=== PATIENT | male | born 1990 | race Caucasian/White ===

== ENCOUNTER 2022-11-08 11:46 | Emergency (ER) | payer BC ==
--- NOTE | 2022-11-08 11:52 | ERPHSYRPT ---
- History of Present Illness Time Seen by Provider: 11/08/22 11:52 Source: patient Exam Limitations: no limitations Physician History: This is a 32-year-old white male who had a skin abscess lanced and started on amoxicillin yesterday. He has had 3 doses to help treat this area of infection. He did not take this morning's dose. He noticed some redness followed by rash on his face. He is never taken amoxicillin before. The area became more intensely red and hot and therefore he came to the emergency room for evaluation. He has had no respiratory compromise or issues. He has no chest pain. He has no nausea vomiting or diarrhea. Timing/Duration: today Severity: moderate Associated Symptoms: rash (Facial), No nausea, No vomiting, No shortness of breath, No chest pain, No fever Allergies/Adverse Reactions: Penicillins Allergy (Verified 11/08/22 11:49) Home Medications: Sertraline HCl 1 tab PO DAILY 11/08/22 [History] Travel Risk - International Travel Have you traveled outside of the country in past 3 weeks: No - Coronavirus Screening Are you exhibiting any of the following symptoms?: No Close contact with a COVID-19 positive Pt in past 14-21 Days: No - Review of Systems Constitutional: No Symptoms Eyes: No Symptoms Ears, Nose, & Throat: Other (Facial rash) Respiratory: No Symptoms Cardiac: No Symptoms Abdominal/Gastrointestinal: No Symptoms Genitourinary Symptoms: No Symptoms Musculoskeletal: No Symptoms Skin: Rash (Facial rash), Other (Facial rash) Neurological: No Symptoms Psychological: No Symptoms Endocrine: No Symptoms Hematologic/Lymphatic: No Symptoms Immunological/Allergic: No Symptoms All Other Systems: Reviewed and Negative - Past Medical History Pertinent Past Medical History: Yes - Nursing Vital Signs Nursing Vital Signs: Initial Vital Signs Temperature 97.6 F 11/08/22 11:50 Pulse Rate 91 H 11/08/22 11:50 Respiratory Rate 18 11/08/22 11:50 Blood Pressure 180/117 11/08/22 11:50 O2 Sat by Pulse Oximetry 97 11/08/22 11:50 Pain Scale Pain Intensity 5 - Physical Exam General Appearance: no apparent distress, alert, anxiety, obese Eye Exam: PERRL/EOMI, eyes nml inspection Ears, Nose, Throat Exam: normal ENT inspection, moist mucous membranes Neck Exam: normal inspection, non-tender, supple, full range of motion Respiratory Exam: normal breath sounds, lungs clear, airway intact, No chest tenderness, No respiratory distress Cardiovascular Exam: regular rate/rhythm, normal heart sounds, normal peripheral pulses Gastrointestinal/Abdomen Exam: soft, normal bowel sounds, No tenderness Rectal Exam: not done Back Exam: normal inspection, normal range of motion, No CVA tenderness, No vertebral tenderness Extremity Exam: normal inspection, normal range of motion, pelvis stable Neurologic Exam: alert, oriented x 3, cooperative, classifier II-XII nml as tested, normal mood/affect, nml cerebellar function, nml station & gait, sensation nml Skin Exam: warm, rash (Deep red facial rash in the distribution of the patient's forehead cheeks nose and chin.) Lymphatic Exam: No adenopathy SpO2 Interpretation: normal O2 Delivery: Room Air - Course Nursing assessment & vital signs reviewed: Yes Ordered Tests: Active Orders 24 hr Category Date Time Status IV Insertion STAT Care 11/08/22 12:02 Active Medication Summary Discontinued Medications Generic Name Dose Route Start Last Admin Trade Name Lisa PRN Reason Stop Dose Admin Methylprednisolone Sodium 0 mg 11/08/22 12:02 11/08/22 12:06 Succinate 125 mg/ Sterile IV 11/08/22 12:03 125 mg Water 2 ml STAT ONE Administration Diphenhydramine HCl 50 mg 11/08/22 12:02 11/08/22 12:06 Diphenhydramine Hcl 50 Mg/Ml Vial IV 11/08/22 12:03 50 mg STAT ONE Administration Diphenhydramine HCl Confirm 11/08/22 12:05 Diphenhydramine Hcl 50 Mg/Ml Vial Administered 11/08/22 12:06 Dose 50 mg .ROUTE .STK-MED ONE Famotidine 20 mg 11/08/22 12:02 11/08/22 12:06 Famotidine 20 Mg/1 Vial IV 11/08/22 12:03 20 mg STAT ONE Administration Famotidine Confirm 11/08/22 12:05 Famotidine 20 Mg/1 Vial Administered 11/08/22 12:06 Dose 20 mg IV .STK-MED ONE Methylprednisolone Sodium Succinate Confirm 11/08/22 12:05 Methylprednis Sod Succ 125 Mg/2 Ml Vial Administered 11/08/22 12:06 Dose 125 mg .ROUTE .STK-MED ONE Sterile Water Confirm 11/08/22 12:05 Water For Injection,Sterile 10 Ml Vial Administered 11/08/22 12:06 Dose 10 ml IJ .[employer]-MED ONE - Progress Progress: improved, re-examined Progress Note: 11/08/22 12:38 Patient's facial rash is less intensely red and the rash itself is starting to slowly retract. Patient has no respiratory compromise or problems. This patient's medical issue is 1 of moderate complexity. The level of complexity and the work-up performed is based on the review of the patient's past medical history, the review of the patient's medication list, review of the patient's drug allergies, history of present illness and physical findings on examination. Patient does not require any lab data to be obtained or radiographic studies. We placed an intravenous line and provided the patient with Solu-Medrol 125 mg intravenously, Benadryl 50 mg intravenously and Pepcid 20 mg intravenously. Patient will have prescriptions for Pepcid and prednisone sent to his pharmacy. Patient was instructed to use 50 mg of Benadryl orally 3 times a day for the next 4 days. He is to stop all antibiotics. He is to follow-up with his prescribing physician to determine which antibiotics he should be placed on. Counseled pt/family regarding: diagnosis, need for follow-up Medical Desision Making - Discussion of managment Agreed on:: Treatment plan, need for follow-up - Diagnostic Testing Diagnostic test were ordered, analyzed, and reviewed by me: No - Risk of complications The pt has a mod risk of morbidity or mortality based on: Need for prescription drug management - Departure Departure Disposition: Home Clinical Impression: Allergic reaction caused by a drug Condition: Stable Critical Care Time: No Additional Instructions: Take your medication as prescribed. Use Benadryl 50 mg orally 3 times a day for 4 days. Follow-up with your primary prescribing provider for further evaluation management. Return to the emergency department if symptoms worsen. Stop your amoxicillin antibiotic. Call your primary provider to obtain instructions on when to start in which antibiotic to change to if indicated. Prescriptions: Prednisone 10 mg [Deltasone 10 mg] 10 mg PO TID #12 tablet Famotidine 20 mg [Pepcid 20 MG] 20 mg PO DAILY #10 tablet
[2022-11-08] MEDS ORDERED: Pepcid 20 MG VIAL IV ONE ×2 (12:02→12:05)
[2022-11-08] MEDS ORDERED: solu-MEDROL 125 MG, Sterile H2O 10 ml 2 ML IV ONE ×2 (12:02)
[2022-11-08] MEDS ORDERED: BENADRYL 50 MG/ML IV ONE (12:02)
[2022-11-08] MEDS ORDERED: solu-MEDROL ONE (12:05)
[2022-11-08] MEDS ORDERED: BENADRYL 50 MG/ML ONE (12:05)
[2022-11-08] MEDS ORDERED: Sterile H2O 10 ml IJ ONE (12:05)
[2022-11-08] MEDS ORDERED: Sodium Chloride 0.9% 500 ML 500 ML IV ONE ×2 (13:30→13:39)
[2022-11-08 13:58] VITALS: BP 154/103; PULSE 78; O2SAT 93
== END 2022-11-08 14:53 | disposition home or self-care (01) ==
LOC: ED 11:46
DX: L27.0 Generalized skin eruption due to drugs and medicaments taken internally (principal); T36.0X5A Adverse effect of penicillins, initial encounter; Z79.899 Other long term (current) drug therapy; Z79.52 Long term (current) use of systemic steroids
CPT/HCPCS: 36000; 96374; 96375; 99284; J1200; J2930